=== PATIENT | female | born 1985 | race Caucasian/White ===

== ENCOUNTER 2024-01-27 14:19 | Observation (INO) | payer OTHER, SELFPAY ==
--- NOTE | 2024-01-27 14:19 | OBADM ---
This patient, Collette Iyer, admitted to the OB room OB Post 115 for observation. Patient/family oriented to hospital policies and general routines including ID bracelet, bed and alarms, visiting hours, pain management, procedures, bathroom and other care routines, personal items, smoking policy, room service/diet, and visiting hours. Patient/Family are encouraged to report perceived risks to care and to ask questions if they do not understand what they are told or what they should do.
--- NOTE | 2024-01-27 14:50 | PC.NURSE ---
pt reports having pain in her middle/upper right quadrant pain. Pt states that she ate lunch around 12 and following that she developed a constant pain that was 8/10. Pt now reporting that her pain is 1/10 and dull. pt states it doesnt really even bother her at this time. Pt has hx of enlarged bile duct in 2020.
[2024-01-27 15:07] LABS: Basophils Absolute Auto 0.1 K/mm3 (0.0-0.1); Basophils Percent Auto 0.5 % (0.2-1.2); Eosinophils Absolute Auto 0.1 K/mm3 (0-0.3); Eosinophils Percent Auto 0.7 % (0-4.4); Hematocrit 31.9 % (37.0-47.0); Hemoglobin 10.6 g/dL (12.0-15.0); Immature Granulocyte Absolute 0.49 K/mm3 (0.00-0.031); Immature Granulocyte Percent A 4.6 % (0-0.5); Lymphocytes Absolute Auto 1.75 K/mm3 (0.9-3.2); Lymphocytes Percent Auto 16.3 % (18.3-44.2); Mean Corpuscular HGB Conc 33.2 g/dl (32-36); Mean Corpuscular Hemoglobin 31.5 pg (26-34); Mean Corpuscular Volume 94.9 fl (80-100); Mean Platelet Volume 9.4 fl (7.4-10.4); Monocytes Absolute Auto 0.6 K/mm3 (0.1-0.6); Monocytes Percent Auto 5.4 % (2.6-8.5); Neutrophils Absolute Auto 7.8 K/mm3 (1.3-6.7); Neutrophils Percent Auto 72.5 % (45.5-73.1); Platelet Count Result 273 k/mm3 (150-375); Red Blood Count 3.36 M/mm3 (4.2-5.4); Red Cell Distribution Width 13.9 % (11.5-14.5); White Blood Count 10.7 K/mm3 (4.5-10.0)
[2024-01-27 15:08] VITALS: BMI 30.8
[2024-01-27 15:15] VITALS: BP 108/61; PULSE 73
[2024-01-27 15:18] LABS: Alanine Aminotransferase 14 U/L (6-35); Albumin Level 3.6 g/dL (3.5-5.1); Alkaline Phosphatase 98 U/L (38-126); Anion Gap 8 mmol/L (4-12); Aspartate Amino Transferase 36 U/L (14-36); Bilirubin,Total 0.5 mg/dL (0.2-1.3); Blood Urea Nitrogen 9 mg/dL (7-17); Calcium 8.8 mg/dL (8.4-10.2); Carbon Dioxide 22 mmol/L (22-30); Chloride 104 mmol/L (98-107); Estimated CRCL calculation 136 ml/min; Estimated Glomerular Filt Rate > 60; Glucose 79 mg/dL (65-110); Potassium 3.3 mmol/L (3.4-5.0); Sodium 134 mmol/L (137-145)
--- NOTE | 2024-01-27 15:24 | PC.NURSE ---
Dr. Walton updated on the vitals, NST, lab results and pt complaint. Order received for outpatient ultrasound be preformed. MD townsend with pt being discharged at this time.
[2024-01-27 15:30] VITALS: BP 107/63; PULSE 67
[2024-01-27 15:55] VITALS: BP 108/61; PULSE 72
--- NOTE | 2024-01-30 12:01 | P.PNOB_ITS ---
OB - Triage/Final Diagnosis Visit Information Reason for evaluation: other (RUQ pain) Comments/Additional reasons for admission: I have assessed the risk for this patient, Collette Iyer, and determined that she would benefit from observation care. Evaluation Laboratory results: Laboratory Tests 01/27/24 14:49 WBC 10.7 H RBC 3.36 L Hgb 10.6 L Hct 31.9 L MCV 94.9 MCH 31.5 MCHC 33.2 RDW 13.9 Plt Count 273 MPV 9.4 Immature Gran % (Auto) 4.6 H Neut % (Auto) 72.5 Lymph % (Auto) 16.3 L [place] % (Auto) 5.4 Eos % (Auto) 0.7 Baso % (Auto) 0.5 Lymph # (Auto) 1.75 [place] # (Auto) 0.6 Eos # (Auto) 0.1 Baso # (Auto) 0.1 Abs Immat Gran (auto) 0.49 H Absolute Neuts (auto) 7.8 H Absolute Nucleated RBC 0.000 Nucleated RBC % 0.0 Sodium 134 L Potassium 3.3 L Chloride 104 Carbon Dioxide 22 Anion Gap 8 BUN 9 Creatinine 0.50 L Estim Creat Clear Calc 136 Estimated GFR > 60 Glucose 79 Calcium 8.8 Total Bilirubin 0.5 AST 36 ALT 14 Alkaline Phosphatase 98 Total Protein 7.0 Albumin 3.6
== END 2024-01-27 15:55 | disposition home or self-care (01) ==
PROVIDERS: Admitting Provider Obstetrics & Gynecology Gynecology; Visit Provider Obstetrics & Gynecology Gynecology
DX: O26.892 Other specified pregnancy related conditions, second trimester (principal); R10.11 Right upper quadrant pain; Z3A.26 26 weeks gestation of pregnancy
CPT/HCPCS: 36415; 59025; 80053; 85025; G0378; G0379

== ENCOUNTER 2024-01-29 08:25 | Outpatient (CLI) | payer OTHER, SELFPAY ==
--- NOTE | ~2024-01-29 | US_ITS ---
Limited Abdominal Sonogram: Real-time sonographic imaging of the right upper quadrant was performed. Clinical History: Abdominal pain Findings: The liver appears normal with no evidence of mass lesion or bile duct dilatation. Main por viktor vein demonstrates normal direction of flow. The gallbladder is well distended, and appears normal with no evidence of gallstone or wall thickening. The common bile duct measures 7 mm. The visualize d pancreas, aorta, and IVC are unremarkable. Impression: No significant abnormality seen. Reviewed, dictated and finalized at location . Impression: No significant abnormality seen.
== END 2024-01-29 08:26 | disposition home or self-care (01) ==
PROVIDERS: Visit Provider Obstetrics & Gynecology Gynecology
DX: R10.9 Unspecified abdominal pain (principal)
CPT/HCPCS: 76705

== ENCOUNTER 2024-03-25 09:32 | Outpatient (CLI) | payer OTHER, SELFPAY ==
[2024-03-25 10:09] LABS: Hematocrit 33.8 % (37.0-47.0); Hemoglobin 11.2 g/dL (12.0-15.0); Mean Corpuscular HGB Conc 33.1 g/dl (32-36); Mean Corpuscular Hemoglobin 31.4 pg (26-34); Mean Corpuscular Volume 94.7 fl (80-100); Mean Platelet Volume 9.2 fl (7.4-10.4); Platelet Count Result 294 k/mm3 (150-375); Red Blood Count 3.57 M/mm3 (4.2-5.4); Red Cell Distribution Width 13.2 % (11.5-14.5); White Blood Count 10.3 K/mm3 (4.5-10.0)
[2024-03-25 10:18] LABS: Alanine Aminotransferase 14 U/L (6-35); Albumin Level 3.5 g/dL (3.5-5.1); Alkaline Phosphatase 165 U/L (38-126); Anion Gap 6 mmol/L (4-12); Aspartate Amino Transferase 40 U/L (14-36); Bilirubin,Total 0.4 mg/dL (0.2-1.3); Blood Urea Nitrogen 11 mg/dL (7-17); Calcium 8.8 mg/dL (8.4-10.2); Carbon Dioxide 25 mmol/L (22-30); Chloride 103 mmol/L (98-107); Estimated Glomerular Filt Rate > 60; Glucose 83 mg/dL (65-110); Potassium 4.1 mmol/L (3.4-5.0); Sodium 134 mmol/L (137-145); Uric Acid 4.3 mg/dL (2.5-7.5)
[2024-03-25 10:31] VITALS: BP 113/71; PULSE 79
[2024-03-25 10:34] LABS: Band Neutrophils Percent 8 % (0-6); Lymphocytes Absolute Manual 3.19 K/mm3 (1.1-4.5); Monocytes Percent Manual 3 % (3-9); Neutrophils Absolute Manual 6.79 K/mm3 (1.7-7.2); Neutrophils Percent Manual 58 % (46-73); Platelet Estimate Adequate (Adequate); Schistocytes None Seen; Total Cells Counted 100
[2024-03-25 10:35] LABS: Add Urine Microscopic? NO; Appearance Urine Clear (Clear); Bilirubin Urine Negative (Negative); Blood Urine Negative (Negative); Color Urine Yellow (Yellow); Glucose Urine UA Negative (Negative); Hypochromasia 1+; Ketones Urine Negative (Negative); Leukocyte Esterase Ur Negative LEU/UL (Negative); Nitrate Urine Negative (Negative); Protein Urine Negative (Negative); Specific Grav Ur 1.005 (1.001-1.035); Urobilinogen Urine 0.2 mg/dL (<2.0)
[2024-03-25 10:46] VITALS: BP 115/66; PULSE 69
[2024-03-25 10:52] LABS: Total Protein Urine Random 15 mg/dL; Ur Ttl Prot Creatinine Ratio 0.83 mg/mg (0-0.20)
--- NOTE | 2024-03-25 10:57 | PC.NURSE ---
Pt has complaints of elevated blood pressure and swelling in her right leg. Right leg swelling +1. CNM updated on labs and blood pressures, NST reviewed. Order receieved for pt to complete 24 hour urine collection and when she returns have CMP drawn. Pt instructed to continue checking her BP at home and report to her provider
[2024-03-25 11:01] VITALS: BP 106/66; PULSE 81
[2024-03-25 11:30] VITALS: BP 113/71; PULSE 81
== END 2024-03-25 11:13 | disposition home or self-care (01) ==
LOC: ANHOBOP 09:41 → ANHLDR 09:43
PROVIDERS: Visit Provider Advanced Practice Midwife
DX: O26.899 Other specified pregnancy related conditions, unspecified trimester (principal); R03.0 Elevated blood-pressure reading, without diagnosis of hypertension; M79.89 Other specified soft tissue disorders; Z3A.00 Weeks of gestation of pregnancy not specified
CPT/HCPCS: 36415; 59025; 80053; 81003; 81050; 82570; 82575; 84156; 84550; 85025; 99199

== ENCOUNTER 2024-03-26 12:58 | Outpatient (NON) | payer OTHER, SELFPAY ==
[2024-03-26 13:14] VITALS: BMI 34.1
[2024-03-26 14:11] LABS: Collection Time Urine 24 HOURS; Patient Weight 205 Lbs; Total Volume 24 Hour Urine 1400 ml
[2024-03-26 14:51] LABS: Total Protein Urine 24 Hr 196 mg/24hr (28-141); Total Protein Urine Random 14 mg/dL
[2024-03-26 14:52] LABS: Creatinine Clearance Urine 144.9 ml/min (75-125)
== END 2024-03-26 12:59 | disposition home or self-care (01) ==
PROVIDERS: Visit Provider Advanced Practice Midwife
DX: O13.9 Gestational [pregnancy-induced] hypertension without significant proteinuria, unspecified trimester (principal); Z3A.00 Weeks of gestation of pregnancy not specified
CPT/HCPCS: 81050; 82575; 84156

== ENCOUNTER 2024-03-31 11:21 | Outpatient (CLI) | payer OTHER, SELFPAY ==
--- NOTE | ~2024-03-31 | US_ITS ---
EXAMINATION: US renal BI DATE: 03/31/2024 11:39 INDICATION: Right flank pain TECHNIQUE: Multiple ultrasound grayscale images of the kidneys were obtained. COMPARISON: None. FINDINGS: The right kidney measures 10.2 x 5.4 x 6.1 cm. The left kidney measures 9.9 x 4.9 x 4.4 cm. The kidne ys demonstrate normal echogenicity. There is no hydronephrosis in either kidney. No stones identifie d. The bladder is normal. IMPRESSION: 1. Normal kidneys without hydronephrosis. Reviewed, dictated and finalized at location B.
== END 2024-03-31 11:22 | disposition home or self-care (01) ==
LOC: MICIMG 11:22
PROVIDERS: PCP Advanced Practice Midwife; Visit Provider Advanced Practice Midwife
DX: R10.9 Unspecified abdominal pain (principal)
CPT/HCPCS: 76775

== ENCOUNTER 2024-04-17 19:32 | Inpatient (IN) | payer OTHER, SELFPAY ==
[2024-04-17] VITALS (9 sets, daily range): BP systolic 120–138; BP diastolic 77–100; PULSE 25–92; O2SAT 82–100; BMI 35.5
--- NOTE | 2024-04-17 21:05 | LDADM ---
This patient, Collette Iyer, was admitted to Labor/Delivery/Recovery 106 on 04/17/24 at 19:32. Plans for labor, pain management and were discussed with patient. Patient/family oriented to hospital policies and general routines including ID bracelet, bed and alarms, visiting hours, pain management, procedures, bathroom and other care routines, personal items, smoking policy, room service/diet and guest tray routines, security routines, and visiting hours. Patient/Family are encouraged to report perceived risks to care and to ask questions if they do not understand what they are told or what they should do. See OBIX for further documentation.
[2024-04-17 21:34] LABS: Basophils Absolute Auto 0.2 K/mm3 (0.0-0.1); Basophils Percent Auto 1.2 % (0.2-1.2); Eosinophils Absolute Auto 0.6 K/mm3 (0-0.3); Eosinophils Percent Auto 4.6 % (0-4.4); Hematocrit 35.5 % (37.0-47.0); Hemoglobin 12.1 g/dL (12.0-15.0); Immature Granulocyte Absolute 0.87 K/mm3 (0.00-0.031); Lymphocytes Absolute Auto 2.35 K/mm3 (0.9-3.2); Mean Corpuscular HGB Conc 34.1 g/dl (32-36); Mean Corpuscular Hemoglobin 31.4 pg (26-34); Mean Corpuscular Volume 92.2 fl (80-100); Monocytes Absolute Auto 0.7 K/mm3 (0.1-0.6); Monocytes Percent Auto 5.3 % (2.6-8.5); Neutrophils Absolute Auto 7.8 K/mm3 (1.3-6.7); Neutrophils Percent Auto 62.9 % (45.5-73.1); Platelet Count Result 293 k/mm3 (150-375); Red Blood Count 3.85 M/mm3 (4.2-5.4); Red Cell Distribution Width 13.3 % (11.5-14.5); White Blood Count 12.4 K/mm3 (4.5-10.0)
[2024-04-17 22:20] LABS: HIV 1/2 Ab P24 Ag Result Negative (Negative)
[2024-04-17 22:23] LABS: Rapid Plasma Reagin Non-Reactive (NonReactive)
[2024-04-17 23:30] LABS: INR 0.9; Prothrombin Time 11.9 Seconds (11.1-14.7)
[2024-04-17] MEDS: LACTATED RINGERS 1,000 ML 125 ML IV CONT (23:32)
[2024-04-17] MEDS: TERBUTALINE SULFATE 1 MG/ML VIAL 0.25 MG SUB-Q (23:50)
[2024-04-18] VITALS (201 sets, daily range): BP systolic 95–157; BP diastolic 40–97; PULSE 63–155; RESP 18–20; TEMP 36.2–36.8; O2SAT 94–100
--- NOTE | 2024-04-18 00:04 | WPDANESEPPF ---
Anes - Initial Pre Proc Eval Date/Time: 04/18/24 00:04 Surgeon: Joann Walton MD Pre Op Diagnosis: Leaking Patient Data Age: 38 Gender: F Height: Weight: Last Vital Signs Pulse 122 H 04/18/24 00:00 BP 151/73 H 04/18/24 00:00 Pulse Ox 100 04/17/24 23:59 Allergies Allergy/AdvReac Type Severity Reaction Status Date / Time No Known Allergies Allergy Verified 04/03/24 12:26 Home Medications Medication Instructions Recorded Confirmed Type escitalopram oxalate 20 mg tablet 20 mg PO DAILY 01/27/24 04/03/24 History aspirin 81 mg tablet 81 mg PO DAILY 04/03/24 04/03/24 History cholecalciferol (vitamin D3) 25 25 mcg PO DAILY 04/03/24 04/03/24 History mcg (1,000 unit) capsule (Vitamin D3) ferrous sulfate 325 mg (65 mg 325 mg PO DAILY 04/03/24 04/03/24 History iron) tablet folic acid 1 mg tablet 1 mg PO DAILY 04/03/24 04/03/24 History heparin (porcine) 10,000 unit/mL 10,000 unit subcut DAILY 04/03/24 04/03/24 History injection solution lansoprazole 30 mg delayed 30 mg PO DAILY 04/03/24 04/03/24 History release,disintegrating tablet vitamin B complex 1 tablet PO DAILY 04/03/24 04/03/24 History Laboratory Tests 04/17/24 04/17/24 21:01 22:52 WBC 12.4 H K/mm3 (4.5-10.0) RBC 3.85 L M/mm3 (4.2-5.4) Hgb 12.1 g/dL (12.0-15.0) Hct 35.5 L % (37.0-47.0) MCV 92.2 fl (80-100) MCH 31.4 pg (26-34) MCHC 34.1 g/dl (32-36) RDW 13.3 % (11.5-14.5) Plt Count 293 k/mm3 (150-375) MPV 10.0 fl (7.4-10.4) Immature Gran % (Auto) 7.0 H % (0-0.5) Neut % (Auto) 62.9 % (45.5-73.1) Lymph % (Auto) 19.0 % (18.3-44.2) [place] % (Auto) 5.3 % (2.6-8.5) Eos % (Auto) 4.6 H % (0-4.4) Baso % (Auto) 1.2 % (0.2-1.2) Lymph # (Auto) 2.35 K/mm3 (0.9-3.2) [place] # (Auto) 0.7 H K/mm3 (0.1-0.6) Eos # (Auto) 0.6 H K/mm3 (0-0.3) Baso # (Auto) 0.2 H K/mm3 (0.0-0.1) Abs Immat Gran (auto) 0.87 H K/mm3 (0.00-0.031) Absolute Neuts (auto) 7.8 H K/mm3 (1.3-6.7) Absolute Nucleated RBC 0.000 K/mm3 (0.0-0.012) Nucleated RBC % 0.0 % (0.0-0.2) PT 11.9 Seconds (11.1-14.7) INR 0.9 RPR Non-reactive (NonReactive) HIV 1&2 Ab/P24 Ag 4thGn Negative (Negative) Blood Type O Positive Antibody Screen Negative Patient hx anesthesia problems: none Family hx anesthesia problems: none Results Review: All pre-operative results and documents have been reviewed as part of the pre-operative evaluation. [facility] Family History Family History Father Malignant neoplasm of prostate Social History Social History Smoking status: Former smoker Tobacco type: e-cigarettes/vaping Second hand tobacco smoke exposure: No Substance use: never Do You Feel Safe in your Home?: Yes Lack of Transportation: No Lack of Food: Never True Current Housing: I Have Housing Concerned About Future Housing: No Difficulty Paying Gas/Electric Bills: No Difficulty Paying for Meds: No Currently Unemployed: No Education: Trade/Vocational Certificate Difficulty w/ Childcare or Family Care: No Spiritual care concerns: No Anes - Eval Final PreProcedure Day of Procedure 04/18/24 00:04 Neurological: alert and oriented ASA classification: II Emergent: no Anesthetic plan: proceed Anesthesia type and monitoring: regional epidural and standard monitoring Results Review: All pre-operative results and documents have been reviewed as part of the pre-operative evaluation. Informed Consent: The patient's anesthetic plan and its attendant risks and benefits were discussed with the patient/family/POA. Questions were solicited and answers provided to the satisfaction of
[2024-04-18] MEDS: ONDANSETRON INJ 4 MG/2 ML VIAL IV PUSH ×2 (01:02→10:21)
[2024-04-18] MEDS: OXYTOCIN 30 UNITS/NS 500 ML 30 UNITS/500 ML BAG IV CONT (04:40)
[2024-04-18] MEDS: LACTATED RINGERS 1,000 ML 125 ML IV CONT (06:43)
--- NOTE | 2024-04-18 07:26 | PM.IMHP ---
H&P: HPI History of Present Illness Date/Time: 04/18/24 07:26 Chief Complaint: Sherry Truong Narrative: 38 y/o at 38 2/7 weeks gestation by IVF dating who had gush of clear fluid at 1800. GBS neg. IVF . She is homozygous for MTHFR gene mutation, has a Factor V Leiden gene mutation. She had been taking Lovenox, was switched to heparin. Last dose of heparin was 36 hours ago. EFW 2 weeks ago by ultrasound 7#6oz. Review of Systems Review of Systems: All systems reviewed & are unremarkable except as noted in HPI and below PMFSH Past Medical History Medical History Anxiety and depression Surgical History Surgical History History of rectal sphincterotomy History of rotator cuff surgery Family History Family History Father Malignant neoplasm of prostate Social History Social History Smoking status: Former smoker Tobacco type: e-cigarettes/vaping Second hand tobacco smoke exposure: No Substance use: never Do You Feel Safe in your Home?: Yes Lack of Transportation: No Lack of Food: Never True Current Housing: I Have Housing Concerned About Future Housing: No Difficulty Paying Gas/Electric Bills: No Difficulty Paying for Meds: No Currently Unemployed: No Education: Trade/Vocational Certificate Difficulty w/ Childcare or Family Care: No Spiritual care concerns: No Meds Home Medications and Allergies Home Medications Medication Instructions Recorded Confirmed Type escitalopram oxalate 20 mg tablet 20 mg PO DAILY 01/27/24 04/03/24 History aspirin 81 mg tablet 81 mg PO DAILY 04/03/24 04/03/24 History cholecalciferol (vitamin D3) 25 25 mcg PO DAILY 04/03/24 04/03/24 History mcg (1,000 unit) capsule (Vitamin D3) ferrous sulfate 325 mg (65 mg 325 mg PO DAILY 04/03/24 04/03/24 History iron) tablet folic acid 1 mg tablet 1 mg PO DAILY 04/03/24 04/03/24 History heparin (porcine) 10,000 unit/mL 10,000 unit subcut DAILY 04/03/24 04/03/24 History injection solution lansoprazole 30 mg delayed 30 mg PO DAILY 04/03/24 04/03/24 History release,disintegrating tablet vitamin B complex 1 tablet PO DAILY 04/03/24 04/03/24 History Allergies Allergy/AdvReac Type Severity Reaction Status Date / Time No Known Allergies Allergy Verified 04/03/24 12:26 Vital Signs Vital Signs - 24 hr 04/17/24 20:30 04/17/24 20:45 04/17/24 21:00 Temperature Pulse Rate 65 72 73 Blood Pressure 131/77 133/80 120/99 H Pulse Oximetry 04/17/24 23:34 04/17/24 23:34 04/17/24 23:39 Temperature Pulse Rate Blood Pressure Pulse Oximetry 82 L 87 L 98 04/17/24 23:44 04/17/24 23:49 04/17/24 23:54 Temperature Pulse Rate 80 Blood Pressure 138/100 H Pulse Oximetry 99 100 99 04/17/24 23:59 04/18/24 00:00 04/18/24 00:04 Temperature Pulse Rate 122 H Blood Pressure 151/73 H Pulse Oximetry 100 99 04/18/24 00:09 04/18/24 00:11 04/18/24 00:13 Temperature Pulse Rate 107 H 99 Blood Pressure 150/71 H 157/70 H Pulse Oximetry 99 04/18/24 00:14 04/18/24 00:15 04/18/24 00:16 Temperature Pulse Rate 108 H Blood Pressure 130/77 Pulse Oximetry 100 100 04/18/24 00:17 04/18/24 00:20 04/18/24 00:23 Temperature Pulse Rate 103 H 99 102 H Blood Pressure 139/72 95/62 L 134/76 Pulse Oximetry 99 04/18/24 00:25 04/18/24 00:28 04/18/24 00:30 Temperature Pulse Rate 88 80 104 H Blood Pressure 143/70 H 133/73 132/72 Pulse Oximetry 97 97 04/18/24 00:33 04/18/24 00:35 04/18/24 00:38 Temperature Pulse Rate 90 81 87 Blood Pressure 121/69 134/72 140/59 L Pulse Oximetry 97 04/18/24 00:40 04/18/24 00:42 04/18/24 00:45 Temperature Pulse Rate 85 88 99 Blood Pressure 132/72 133/80
--- NOTE | 2024-04-18 08:40 | PM.OBPNLAB ---
Pain Control Date/time seen: 04/18/24 08:40 Comments: Comfortable. Had stopped oxytocin after FHR decelerations. Pelvic Exam Dilation (cm): 6 Effacement (%): 90 station: -1 Contractions Contraction frequency: 3 Contraction pattern: Regular Status status: Category l Assessment and Plan Comments: Resume labor augmentation with oxytocin.
--- NOTE | 2024-04-18 10:04 | PM.OBPNLAB ---
Pain Control Date/time seen: 04/18/24 10:04 Comments: Comfortable Pelvic Exam Dilation (cm): 6 Effacement (%): 90 station: -1 Contractions Contraction frequency: 3 Contraction pattern: Regular Status Comments: FHR deceleration to 85 Assessment and Plan Comments: A: IUP at term with labor. Now with nonreassuring FHR tracing, remote from delivery. P: Offered primary . She understands risks of surgery to include risks of anesthesia, risks of pain, infection, bleeding, blood products, thromboembolic phenomena and damage to adjacent structures such as bowel, bladder, ureters, blood vessels and nerves. She understands all these risks and elects to proceed with surgery.
[2024-04-18] MEDS: ACETAMINOPHEN 500 MG TABLET 1000 MG PO (10:20)
[2024-04-18] MEDS: FAMOTIDINE 20 MG/2 ML VIAL (10:20)
--- NOTE | 2024-04-18 10:36 | WPDANESEPPF ---
Anes - Initial Pre Proc Eval Procedure: Operation Date: 04/18/24 10:30 Proposed Procedures p Section - Michel Rodriguez MD Date/Time: 04/18/24 10:36 Surgeon: Joann Walton MD Pre Op Diagnosis: non-reassuring heart tones Pre Op Diagnosis: Leaking Patient Data Age: 38 Gender: F Height: 1.68 m Weight: 99.8 kg Last Vital Signs Temp 36.8 C 04/18/24 09:00 Pulse 69 04/18/24 09:45 BP 126/80 04/18/24 09:45 Pulse Ox 100 04/18/24 10:13 Allergies Allergy/AdvReac Type Severity Reaction Status Date / Time No Known Allergies Allergy Verified 04/03/24 12:26 Home Medications Medication Instructions Recorded Confirmed Type escitalopram oxalate 20 mg tablet 20 mg PO DAILY 01/27/24 04/03/24 History aspirin 81 mg tablet 81 mg PO DAILY 04/03/24 04/03/24 History cholecalciferol (vitamin D3) 25 25 mcg PO DAILY 04/03/24 04/03/24 History mcg (1,000 unit) capsule (Vitamin D3) ferrous sulfate 325 mg (65 mg 325 mg PO DAILY 04/03/24 04/03/24 History iron) tablet folic acid 1 mg tablet 1 mg PO DAILY 04/03/24 04/03/24 History heparin (porcine) 10,000 unit/mL 10,000 unit subcut DAILY 04/03/24 04/03/24 History injection solution lansoprazole 30 mg delayed 30 mg PO DAILY 04/03/24 04/03/24 History release,disintegrating tablet vitamin B complex 1 tablet PO DAILY 04/03/24 04/03/24 History Laboratory Tests 04/17/24 04/17/24 21:01 22:52 WBC 12.4 H K/mm3 (4.5-10.0) RBC 3.85 L M/mm3 (4.2-5.4) Hgb 12.1 g/dL (12.0-15.0) Hct 35.5 L % (37.0-47.0) MCV 92.2 fl (80-100) MCH 31.4 pg (26-34) MCHC 34.1 g/dl (32-36) RDW 13.3 % (11.5-14.5) Plt Count 293 k/mm3 (150-375) MPV 10.0 fl (7.4-10.4) Immature Gran % (Auto) 7.0 H % (0-0.5) Neut % (Auto) 62.9 % (45.5-73.1) Lymph % (Auto) 19.0 % (18.3-44.2) [place] % (Auto) 5.3 % (2.6-8.5) Eos % (Auto) 4.6 H % (0-4.4) Baso % (Auto) 1.2 % (0.2-1.2) Lymph # (Auto) 2.35 K/mm3 (0.9-3.2) [place] # (Auto) 0.7 H K/mm3 (0.1-0.6) Eos # (Auto) 0.6 H K/mm3 (0-0.3) Baso # (Auto) 0.2 H K/mm3 (0.0-0.1) Abs Immat Gran (auto) 0.87 H K/mm3 (0.00-0.031) Absolute Neuts (auto) 7.8 H K/mm3 (1.3-6.7) Absolute Nucleated RBC 0.000 K/mm3 (0.0-0.012) Nucleated RBC % 0.0 % (0.0-0.2) PT 11.9 Seconds (11.1-14.7) INR 0.9 RPR Non-reactive (NonReactive) HIV 1&2 Ab/P24 Ag 4thGn Negative (Negative) Blood Type O Positive Antibody Screen Negative Patient hx anesthesia problems: none Family hx anesthesia problems: none Results Review: All pre-operative results and documents have been reviewed as part of the pre-operative evaluation. [facility] Past Medical History Medical History Anxiety and depression Surgical History Surgical History History of rectal sphincterotomy History of rotator cuff surgery Family History Family History Father Malignant neoplasm of prostate Social History Social History Smoking status: Former smoker Tobacco type: e-cigarettes/vaping Second hand tobacco smoke exposure: No Substance use: never Do You Feel Safe in your Home?: Yes Lack of Transportation: No Lack of Food: Never True Current Housing: I Have Housing Concerned About Future Housing: No Difficulty Paying Gas/Electric Bills: No Difficulty Paying for Meds: No Currently Unemployed: No Education: Trade/Vocational Certificate Difficulty w/ Childcare or Family Care: No Spiritual care concerns: No Anes - Eval Final PreProcedure Day of Procedure 04/18/24
[2024-04-18] MEDS: ceFAZolin 2 GM/D5W 50 ML 2 GM/50 ML BAG IVPB (11:21)
--- NOTE | 2024-04-18 11:22 | W.PM.OBCSD ---
OB - Delivery Note Procedure Delivery date: 04/18/24 Pre-op diagnosis: Non-Reassuring Status Post-op Diagnosis: Same Induction method: None Delivery augmentation: Pitocin Delivery monitor: External FHT, External Uterine, Internal FHT and Internal Uterine Procedure Performed: Primary Surgeon: Michel Rodriguez MD Anesthesia type: Epidural Description of Procedure/Findings: Findings: Small subserosal myomata noted. Otherwise, unremarkable uterus, tubes and ovaries. Techniques: The patient is a 38 y/o at 38 3/7 weeks by IVF dating, here with SROM. Labor was augmented with oxytocin. She had several episodes of FHR deceleration, each responding to resuscitation. However, after the third episode, her cervix was noted to still be 6 cm dilated, a was offered. We reviewed risks, benefits and alternatives in detail and she elected to proceed. She was taken to the operating room where she was prepared and draped in the usual sterile fashion in dorsal supine position with a leftward tilt. She received cefazolin and azithromycin preoperatively. Epidural anesthesia was found to be adequate. A Pfannenstiel skin incision was made and carried through to the underlying layer of the fascia. The fascia was incised in the midline and the incision was extended laterally. The fascia was dissected free of the underlying rectus muscles. The rectus muscles were in the midline. The peritoneum was identified, tented up and entered sharply. The peritoneal incision was extended superiorly and inferiorly with good visualization of the bladder. The bladder blade was placed. The vesicouterine peritoneum was identified, tented up and entered sharply. The incision was extended laterally and the bladder flap was developed. The bladder blade was replaced. The uterus was then incised sharply in a transverse fashion along the lower uterine segment. The incision was extended laterally. The 's head was delivered atraumatically from occiput posterior position to the sterile field, followed by the body. The nose and mouth were bulb suctioned. After a delay, the cord was clamped and cut. The was handed off the field. Cord blood was collected. The placenta was removed manually and was passed off the field. The uterus was exteriorized and cleared of all clots and debris. The uterine incision was reapproximated using 0 Monocryl in a running, locked fashion. A second, imbricating layer of the same suture was run. Excellent hemostasis resulted as did excellent reapproximation of the normal anatomy. The uterus was returned the abdomen. The pelvis was irrigated copiously with warmed normal saline. Rigorous hemostasis was assured. The fascial layer was reapproximated using 0 Vicryl in a running fashion. The skin was closed with a running, subcuticular stitch of 4 0 Vicryl. Dermaflex was applied externally. Sponge, lap, needle and instrument counts were correct. The patient was taken to the recovery room in stable condition. The went to the nursery. I was present and scrubbed the entire procedure. Specimen: Yes (cord blood) Estimated Blood Loss: 955 Drains: Yes ([place]) Packing: No Pathology: Yes (cord blood) Complications: None Condition: Stable Disposition: PACU Baby Date of : 04/18/24 Time of : 10:45 Gestational Age by Date: 38 gender: Male presentation: vertex Placenta delivery description: Manual Removal and Normal Configuration Cord Vessel Description: 3 Vessels and Delayed Cord Clamping
[2024-04-18] MEDS: AZITHROMYCIN 500 MG/NS 250 ML 500 MG/250 ML BAG 250 MG IVPB (11:25)
--- NOTE | 2024-04-18 11:27 | PM.OBDSVD ---
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 Status: Acute OB - DS: Summary OB Procedures : None OB Procedures Intrapartum: OB Procedures: : None Peripartum Data Procedures: Procedures Operation Date: 04/18/24 10:30 Actual Procedure Side Surgeon p Section Michel Rodriguez MD Time Spent with Patient Time attestation: Total time spent providing and/or coordinating discharge services: DS: Data Data Completed and Pending Labs on day of discharge: Labs from last 24 hours 04/17/24 04/17/24 22:52 21:01 WBC 12.4 H RBC 3.85 L Hgb 12.1 Hct 35.5 L MCV 92.2 MCH 31.4 MCHC 34.1 RDW 13.3 Plt Count 293 MPV 10.0 Immature Gran % (Auto) 7.0 H Neut % (Auto) 62.9 Lymph % (Auto) 19.0 [place] % (Auto) 5.3 Eos % (Auto) 4.6 H Baso % (Auto) 1.2 Lymph # (Auto) 2.35 [place] # (Auto) 0.7 H Eos # (Auto) 0.6 H Baso # (Auto) 0.2 H Abs Immat Gran (auto) 0.87 H Absolute Neuts (auto) 7.8 H Absolute Nucleated RBC 0.000 Nucleated RBC % 0.0 PT 11.9 INR 0.9 RPR Non-reactive HIV 1&2 Ab/P24 Ag 4thGn Negative Blood Type O Positive Antibody Screen Negative Discharge Plan Discharge Attending physician on discharge: Joann Walton Discharging Clinician: Michel Rodriguez Patient Disposition: Home, Self-Care Activity: may shower, may drive after 2 weeks and pelvic rest Diet: regular Discharge Instructions: Call or return if temperature above 100.4? F, increased abdominal pain, increased vaginal bleeding or any new problems. Stand Alone Forms: General Discharge Information Follow-up/Referrals: Joann Walton MD [Physician] - Call for Appointment Discharge Medications: New ibuprofen 600 mg tablet 600 mg PO Q6H PRN (Reason: cramps) Qty: 30 0RF hydrocodone-acetaminophen 5-325 mg tablet 1 - 2 tablet PO Q6H PRN (Reason: pain) Qty: 30 0RF enoxaparin [Lovenox] 40 mg/0.4 mL syringe 40 mg subcut DAILY Qty: 4 1RF Continued escitalopram oxalate 20 mg tablet 20 mg PO DAILY ferrous sulfate 325 mg (65 mg iron) Tablet 325 mg PO DAILY vitamin B complex Tablet 1 tablet PO DAILY folic acid 1 mg Tablet 1 mg PO DAILY cholecalciferol (vitamin D3) [Vitamin D3] 25 mcg (1,000 unit) Capsule 25 mcg PO DAILY lansoprazole 30 mg Tablet,Disintegrat, Delay Rel 30 mg PO DAILY Discontinued aspirin 81 mg Tablet 81 mg PO DAILY heparin (porcine) 10,000 unit/mL solution 10,000 unit subcut DAILY Date of admission: 04/17/24 19:32 Primary Care Provider: Velvet Monahan Admitting Provider: Joann Walton Attending physician on admission: Joann Walton Condition: Stable
[2024-04-18] MEDS: OXYTOCIN 30 UNITS/NS 500 ML 30 UNITS/500 ML BAG 125 UNITS IV CONT (11:49)
[2024-04-18] MEDS: fentaNYL CITRATE INJ (*CRX) 100 MCG/2 ML VIAL 50 MCG IV PUSH (12:17)
[2024-04-18] MEDS: LIDOCAINE 5% PATCH 1 PATCH (12:35)
[2024-04-18] MEDS: KETOROLAC 15 MG/ML VIAL (*BKC) IV PUSH ×3 (12:36→21:10)
[2024-04-18] MEDS: HYDROmorphone HCL INJ (*CRX) 1 MG/ML SYR 0.5 MG IV PUSH ×2 (12:54→13:26)
--- NOTE | 2024-04-18 14:35 | PC.NURSE ---
Patient transferred to post room #283 via stretcher. Support person present. Oriented to unit, room, information board, rooming in, admission packet and security measures. Patient verbalizes understanding.
--- NOTE | 2024-04-18 15:30 | PC.NURSE ---
Per primary RN, mother has her own pump and wants to start pumping since baby is being transferred to [facility]. Mom isn't ready to start yet and she will call out and let us know when she wants us to come and help her initiate pumping.
[2024-04-18] MEDS: SIMETHICONE 80 MG TAB.CHEW PO ×2 (15:34→17:30)
[2024-04-18] MEDS: HYDROcodone/acetaminophen (*CRX) 10-325 MG TABLET 1 TAB PO ×3 (16:22→22:47)
[2024-04-18] MEDS: DEXTROSE 5%/0.45% SOD CHL 1,000 ML 125 ML IV CONT (17:30)
[2024-04-18] MEDS: MORPHINE SULFATE (*CRX) 2 MG/ML INJ IV PUSH (18:22)
[2024-04-18] MEDS: ACETAMINOPHEN 325 MG TABLET 650 MG PO (21:10)
[2024-04-18] MEDS: ESCITALOPRAM OXALATE 10 MG TABLET 20 MG PO (21:10)
[2024-04-19] MEDS: HYDROcodone/acetaminophen (*CRX) 5-325 MG TABLET 1 TAB PO ×3 (01:55→15:00)
[2024-04-19] MEDS: ACETAMINOPHEN 325 MG TABLET 650 MG PO ×3 (03:30→21:03)
[2024-04-19] MEDS: KETOROLAC 15 MG/ML VIAL (*BKC) IV PUSH ×2 (03:30→09:57)
[2024-04-19 03:40] VITALS: BP 121/73; PULSE 99; RESP 18; TEMP 36.5; O2SAT 98
[2024-04-19 04:05] LABS: Basophils Absolute Auto 0.1 K/mm3 (0.0-0.1); Basophils Percent Auto 0.5 % (0.2-1.2); Eosinophils Absolute Auto 0.4 K/mm3 (0-0.3); Eosinophils Percent Auto 2.9 % (0-4.4); Hematocrit 27.6 % (37.0-47.0); Hemoglobin 9.2 g/dL (12.0-15.0); Immature Granulocyte Absolute 0.37 K/mm3 (0.00-0.031); Immature Granulocyte Percent A 2.4 % (0-0.5); Lymphocytes Absolute Auto 1.78 K/mm3 (0.9-3.2); Lymphocytes Percent Auto 11.6 % (18.3-44.2); Mean Corpuscular HGB Conc 33.3 g/dl (32-36); Mean Corpuscular Hemoglobin 31.3 pg (26-34); Mean Corpuscular Volume 93.9 fl (80-100); Mean Platelet Volume 9.7 fl (7.4-10.4); Monocytes Absolute Auto 0.7 K/mm3 (0.1-0.6); Monocytes Percent Auto 4.7 % (2.6-8.5); Neutrophils Absolute Auto 11.9 K/mm3 (1.3-6.7); Neutrophils Percent Auto 77.9 % (45.5-73.1); Platelet Count Result 213 k/mm3 (150-375); Red Blood Count 2.94 M/mm3 (4.2-5.4); Red Cell Distribution Width 13.4 % (11.5-14.5); White Blood Count 15.3 K/mm3 (4.5-10.0)
[2024-04-19 08:15] VITALS: BP 102/67; PULSE 92; RESP 20; TEMP 36.4; O2SAT 97
[2024-04-19] MEDS: POLYSACCHARIDE IRON COMPLEX 150 MG CAPSULE PO ×2 (08:35→21:04)
[2024-04-19] MEDS: DOCUSATE SODIUM 100 MG CAPSULE PO ×2 (08:35→21:04)
[2024-04-19] MEDS: MULTIVIT/MIN/PREN/FOL AC/IRON TABLET 1 TAB PO (08:36)
[2024-04-19] MEDS: SIMETHICONE 80 MG TAB.CHEW PO ×3 (08:36→21:04)
--- NOTE | 2024-04-19 11:15 | WPDANLDPN2 ---
Anes-Prog Note L&D Date/Time: 04/19/24 11:15 Comfortable throughout: labor and section Neuraxial method: epidural Epidural/Spinal procedure site: clean & non-tender Neuro status: Neuro function grossly intact. Cardiovascular status: normal Respiratory status: normal Airway patency: baseline Mental status: baseline Post-Op hydration status: normal Vital Signs: Last Vital Signs Temp 36.4 C 04/19/24 08:15 Pulse 92 04/19/24 08:15 Resp 20 04/19/24 08:15 BP 102/67 04/19/24 08:15 Pulse Ox 97 04/19/24 08:15 O2 Del Method Room Air 04/19/24 03:40 Pain score (VAS): 3 I/O: Intake & Output 04/18/24 04/19/24 04/19/24 23:59 07:59 15:59 Intake Total 480 1550 240 Output Total 800 1100 300 Balance -320 450 -60 Post-procedural complaints: none Patient feedback: Patient satisfied with anesthetic care.
--- NOTE | 2024-04-19 14:29 | P.PNOB_ITS ---
OB - PN: Subj Subjective Date/time seen: 04/19/24 14:30 Narrative: Pain OK. Tolerating diet. Baby was transferred to [facility] and is doing well, reportedly. The patient would like to be discharged. OB - PN: Obj Data Labs 04/19/24 03:41 Labs: Laboratory Results - last 24 hr 04/19/24 03:41 WBC 15.3 H RBC 2.94 L Hgb 9.2 L Hct 27.6 L MCV 93.9 MCH 31.3 MCHC 33.3 RDW 13.4 Plt Count 213 MPV 9.7 Immature Gran % (Auto) 2.4 H Neut % (Auto) 77.9 H Lymph % (Auto) 11.6 L [place] % (Auto) 4.7 Eos % (Auto) 2.9 Baso % (Auto) 0.5 Lymph # (Auto) 1.78 [place] # (Auto) 0.7 H Eos # (Auto) 0.4 H Baso # (Auto) 0.1 Abs Immat Gran (auto) 0.37 H Absolute Neuts (auto) 11.9 H Absolute Nucleated RBC 0.000 Nucleated RBC % 0.0 OB - PN A/P Plan day: 1 Comments: A: POD#1, doing well. P: I told her my preference would be to keep her overnight and discharge tomorrow, but I think it could be OK to be discharged tonight, as that is her preference. F/u Dr. Walton's office for incision check in 1 week. Exam Narrative: AVSS ABD soft, nontender, fundus firm. Incision c/d/i. EXT nontender
--- NOTE | 2024-04-19 16:43 | PC.NURSE ---
Pt. left on pass to visit baby at [facility]. Prescriptions given to to be filled prior to discharge. Pain medication given. Pt. declined lidocaine patch and waiting 30 minutes for additional pain medication to be available.
[2024-04-19] MEDS: HYDROcodone/acetaminophen (*CRX) 10-325 MG TABLET 1 TAB PO (21:03)
[2024-04-19] MEDS: LIDOCAINE 5% PATCH 1 PATCH TRANSDERM (21:04)
[2024-04-19] MEDS: IBUPROFEN 600 MG TABLET PO (21:04)
[2024-04-19 21:30] VITALS: BP 110/61; PULSE 94; RESP 16; TEMP 36; O2SAT 98
--- NOTE | 2024-04-19 22:39 | PC.NURSE ---
04/19/2024 at 2054 This patient and her significant other returned at this time from visiting baby at [facility]. Parents very happy and chatting about baby and showing pictures of how well baby is doing. Pain medication and assessment done at this time and found WNL.
[2024-04-20] MEDS: IBUPROFEN 600 MG TABLET PO ×2 (03:39→09:24)
[2024-04-20] MEDS: ACETAMINOPHEN 325 MG TABLET 650 MG PO ×2 (03:39→09:24)
--- NOTE | 2024-04-20 06:38 | PC.NURSE ---
04/19/2024 @ [address] Dr[address] Rodriguez desires to have the patient stay tonight and have his previous discharge order canceled.
--- NOTE | 2024-04-20 07:45 | PC.NURSE ---
Introductions were made, then consulted with patient to assess needs related to . Discussed with mother her?plans to feed?her and the?experience so far. Baby was transferred to [facility] after , per mother she worked with for 2 hours at [facility] while she visited yesterday, she has her own breast pump with supplies, she has no questions or concerns. Resources provided for inpatient and outpatient services. Mother voiced understanding of information and will call if there is a request for assistance. Reported to the Primary RN.
[2024-04-20 08:10] VITALS: BP 116/60; PULSE 85; RESP 18; TEMP 36.3; O2SAT 100
--- NOTE | 2024-04-20 08:16 | PM.OBPNVD ---
OB - PN: Subj Subjective Date/time seen: 04/20/24 08:16 Patient comments: no complaints and pain well controlled baby status: NICU (Doing well) OB - PN: Obj Data Labs 04/19/24 03:41 OB - PN A/P Plan day: 2 Plan: routine care and discharge home Time Spent With Patient Time: Total time spent is greater than 50% in coordination of care (as documented) at patient's floor/unit and/or counseling patient: Exam Narrative: inc c/d/i : Bimanual exam- vagina & uterus: other (Uterus firm, nt @U)
[2024-04-20] MEDS: POLYSACCHARIDE IRON COMPLEX 150 MG CAPSULE PO (09:24)
[2024-04-20] MEDS: DOCUSATE SODIUM 100 MG CAPSULE PO (09:24)
[2024-04-20] MEDS: SIMETHICONE 80 MG TAB.CHEW PO (09:24)
[2024-04-20] MEDS: MULTIVIT/MIN/PREN/FOL AC/IRON TABLET 1 TAB PO (09:24)
[2024-04-21 11:08] VITALS: BP 122/74; PULSE 78; RESP 18; TEMP 36.7; O2SAT 100
== END 2024-04-20 10:48 | disposition home or self-care (01) | DRG 787 ==
LOC: ANHLDR 04-18 11:29 → ANHOB2 04-18 14:44
PROVIDERS: Admitting Provider Obstetrics & Gynecology; Referring Provider Advanced Practice Midwife; Visit Provider Obstetrics & Gynecology Gynecology
PROC: 10D00Z1 Extraction of Products of Conception, Low, Open Approach (ICD-10-PCS; CPT 59514; principal; 2024-04-18 10:30)
DX: O99.12 Other diseases of the blood and blood-forming organs and certain disorders involving the immune mechanism complicating childbirth (principal); D68.51 Activated protein C resistance; E72.12 Methylenetetrahydrofolate reductase deficiency; Z37.0 Single live birth; Z3A.38 38 weeks gestation of pregnancy; O36.8330 Maternal care for abnormalities of the fetal heart rate or rhythm, third trimester, not applicable or unspecified; O99.284 Endocrine, nutritional and metabolic diseases complicating childbirth
CPT/HCPCS: 36415; 85025; 85610; 86592; 86703; 86850; 86900; 86901; A9270; G0432; J0456; J0690; J1171; J1885; J2004; J2270; J2371; J2405; J2590; J2795; J3010; J3105; J7120